=== PATIENT | male | born 1940 | race Caucasian/White ===

== ENCOUNTER 2018-03-28 13:17 | Emergency (ER) | payer MEDICARE | END 2018-03-28 14:03 | disposition home or self-care (01) | LOC: BURERS 13:17 | DX: T46.1X1A Poisoning by calcium-channel blockers, accidental (unintentional), initial encounter (principal); T46.5X1A Poisoning by other antihypertensive drugs, accidental (unintentional), initial encounter; G30.9 Alzheimer's disease, unspecified; F02.80 Dementia in other diseases classified elsewhere, unspecified severity, without behavioral disturbance, psychotic disturbance, mood disturbance, and anxiety; Z86.711 Personal history of pulmonary embolism; I25.2 Old myocardial infarction; E78.5 Hyperlipidemia, unspecified; Z87.891 Personal history of nicotine dependence; Z79.899 Other long term (current) drug therapy | CPT/HCPCS: 99283 ==

== ENCOUNTER 2020-01-20 16:45 | Inpatient (IN) | payer MEDICARE, OTHER ==
[2020-01-20] MEDS ORDERED: Ibuprofen 800 MG TAB ONE ×2 (17:13→17:52)
[2020-01-20] MEDS ORDERED: Cefepime 1 GM VIAL ONE (17:52)
[2020-01-20 17:57] LABS: ALT (SGPT) 14 U/L (8-55); AST (SGOT) 25 U/L (5-34); Albumin 3.8 g/dL (3.4-4.8); Alkaline Phosphatase 49 U/L (40-110); Anion Gap 12 mmol/L (10-20); BUN (Urea Nitrogen) 24 mg/dL (8.4-25.7); Bilirubin, Total 0.5 mg/dL (0.2-1.2); Calc. Creatinine Clearance 0 mL/min (70-130); Carbon Dioxide 25 mmol/L (23-31); Chloride 105 mmol/L (98-107); Estimated GFR-MDRD 41; Globulin 3.2 g/dL (2.4-3.5); Glucose 89 mg/dL (83-110); Potassium 4.1 mmol/L (3.5-5.1); Sodium 138 mmol/L (136-145)
[2020-01-20 18:06] LABS: #Basophils 0.1 thou/uL (0.0-0.2); #Lymphocytes 1.7 thou/uL (1.20-3.40); #Monocytes 0.6 thou/uL (0.11-0.59); #Neutrophils 3.1 thou/uL (1.40-6.50); %Eosinophils 0.8 % (0.0-10.0); %Lymphocytes 30.2 % (21.0-51.0); %Neutrophils 56.9 % (42.0-75.0); Hemoglobin 14.9 g/dL (14.0-18.0); Mean Corpuscular HGB CONC 29.8 g/dL (32.0-36.0); Mean Corpuscular Hemoglobin 29.9 pg (27.0-31.0); Mean Platelet Volume 8.9 fL (7.4-10.4); Platelet Count 142 thou/uL (130-400); RBC Distribution Width 12.9 % (11.5-14.5); Red Blood Cell (RBC) Count 4.97 mill/uL (4.70-6.10); White Blood Cell (WBC) Count 5.5 thou/uL (4.8-10.8)
[2020-01-20 18:07] LABS: MDiff Complete? YES; Macrocytosis SLIGHT = 6-15 cells (100X) (0-5/hpf)
[2020-01-20 18:11] LABS: Bilirubin Negative (Negative); Blood, Urine Moderate (Negative); Clarity Slightly Cloudy (Clear); Glucose, Urine (Dipstick) Negative (Negative); Leukocyte Negative (Negative); Nitrite Negative (Negative); Protein, Urine (Dipstick) Trace mg/dL (Neg-Trace); Urobilinogen 0.2 mg/dL (Less than 2)
[2020-01-20 18:12] LABS: Bacteria/HPF 1+ HPF (None Seen); Mucous/LPF 1+ LPF (<2+); RBC/HPF 21-50 HPF (0-3); Squamous Epithelial 0-3 HPF (0-3); WBC/HPF 0-3 HPF (0-3)
--- NOTE | 2020-01-20 19:54 | RAD ---
PORTABLE CHEST: 01/20/20 An AP portable film at 1803 is compared with a 06/19/08 study. The heart remains normal in size. Ther e is some questionable streaking in the left base adjacent to the heart. I cannot exclude an early in filtrate here, though the findings are marginal. No large effusions are seen. The mediastinum appears normal. IMPRESSION: Equivocal left basilar infiltrate. Code T POS: HOME
[2020-01-20] MEDS ORDERED: Adacel (T-DAP) 0.5 ML SYRINGE ONE (19:55)
[2020-01-20] MEDS ORDERED: cefTRIAXone\\ROCEPHIN 1 GM VIAL ONE (19:55)
[2020-01-20] MEDS ORDERED: Amoxicillin/Potassium Clav 875 MG TAB ONE (19:55)
[2020-01-20] MEDS ORDERED: Lidocaine 1% PF 5 ML VIAL ONE (20:00)
[2020-01-20 20:12] VITALS: BMI 24.2
[2020-01-20] MEDS ORDERED: Acetaminophen 325 MG TAB PO PRN (20:44)
[2020-01-20] MEDS ORDERED: Prevnar 13-Val Conj/PF 0.5 ML SYRINGE IM ONE (21:00)
[2020-01-20] MEDS ORDERED: Cefepime 2 GM in Sodium Chloride 0.9% 100 ML IVPB SCH (21:00)
[2020-01-20] MEDS ORDERED: Azithromycin 500 MG in Sodium Chloride 0.9% 250 ML 250 ML IVPB SCH (21:00)
[2020-01-20] MEDS: Famotidine 20 MG TAB PO SCH (21:52)
[2020-01-20] MEDS: Sodium Chloride 0.9% 1,000 ML IV SCH (22:40)
[2020-01-21] MEDS: Cefepime 2 GM in Sodium Chloride 0.9% 100 ML IVPB SCH (05:51)
[2020-01-21] MEDS: Fludrocortisone Acetate 0.1 MG TAB PO SCH (07:55)
[2020-01-21] MEDS: Finasteride 5 MG TAB PO SCH (07:55)
[2020-01-21] MEDS: predniSONE 20 MG TAB PO SCH (07:55)
[2020-01-21 08:10] LABS: Anion Gap 13 mmol/L (10-20); BUN (Urea Nitrogen) 20 mg/dL (8.4-25.7); Calc. Creatinine Clearance 47 mL/min (70-130); Calcium 7.8 mg/dL (7.8-10.44); Carbon Dioxide 19 mmol/L (23-31); Chloride 112 mmol/L (98-107); Estimated GFR-MDRD 55; Glucose 81 mg/dL (83-110); Potassium 4.2 mmol/L (3.5-5.1); Sodium 140 mmol/L (136-145)
[2020-01-21 08:21] LABS: Band 35 % (5-11); Hemoglobin 13.4 g/dL (14.0-18.0); Large Platelets SLIGHT; Lymphocytes 17 % (21-51); MDiff Complete? YES; Mean Corpuscular HGB CONC 30.5 g/dL (32.0-36.0); Mean Corpuscular Hemoglobin 30.2 pg (27.0-31.0); Mean Corpuscular Volume 98.8 fL (78.0-98.0); Mean Platelet Volume 8.1 fL (7.4-10.4); Monocytes 9 % (0-10); Neutrophil 35 % (42-75); Platelet Count 109 thou/uL (130-400); RBC Distribution Width 12.8 % (11.5-14.5); Reactive Lymphocytes 4 % (0-10); Red Blood Cell (RBC) Count 4.44 mill/uL (4.70-6.10); White Blood Cell (WBC) Count 4.6 thou/uL (4.8-10.8)
[2020-01-21] MEDS ORDERED: Atorvastatin Calcium 10 MG TAB PO SCH (17:00)
[2020-01-21] MEDS: Sodium Chloride 0.9% 1,000 ML IV SCH (19:20)
[2020-01-21] MEDS: Famotidine 20 MG TAB PO SCH (20:13)
[2020-01-21] MEDS ORDERED: Azithromycin 250 MG in Sodium Chloride 0.9% 250 ML 250 ML IVPB SCH (21:00)
[2020-01-21] MEDS ORDERED: hydrOXYzine 25 MG TAB PO PRN (22:08)
[2020-01-22] MEDS: Cefepime 2 GM in Sodium Chloride 0.9% 100 ML IVPB SCH (05:08)
[2020-01-22 05:36] LABS: Hemoglobin 13.4 g/dL (14.0-18.0); Mean Corpuscular HGB CONC 31.2 g/dL (32.0-36.0); Mean Corpuscular Hemoglobin 30.8 pg (27.0-31.0); Mean Corpuscular Volume 98.9 fL (78.0-98.0); Mean Platelet Volume 8.8 fL (7.4-10.4); Platelet Count 124 thou/uL (130-400); RBC Distribution Width 12.9 % (11.5-14.5); Red Blood Cell (RBC) Count 4.35 mill/uL (4.70-6.10)
[2020-01-22 05:39] LABS: Base Excess-Venous -2.5 mmol/L (-2.0 to 3.0); Bicarbonate (HCO3v) 22.2 mmol/L (22.0-28.0); CO2 Tension (PvCO2) 37.2 mmHg (40.0-50.0); Calcium, Ionized 1.08 mmol/L (See Comments:); Chloride 108 mmol/L (98-107); Hemoglobin - Calc 13.9 g/dL (14.0-18.0); Potassium 3.7 mmol/L (3.5-5.1); Sodium 143 mmol/L (138-145); T. Carbon Dioxide 23.3 mmol/L (22.0-28.0); vO2 Saturation-calc 77.1 % (60.0-85.0)
[2020-01-22 05:58] LABS: Band 5 % (5-11); Lymphocytes 14 % (21-51); MDiff Complete? YES; Monocytes 8 % (0-10); Neutrophil 72 % (42-75); Platelet Morphology Comment Appears Decreased; RBC Morphology Normal
[2020-01-22] MEDS: Finasteride 5 MG TAB PO SCH (08:16)
[2020-01-22] MEDS: Fludrocortisone Acetate 0.1 MG TAB PO SCH (08:16)
[2020-01-22] MEDS: predniSONE 20 MG TAB PO SCH (08:16)
[2020-01-22] MEDS ORDERED: risperiDONE 0.5 MG TAB PO SCH (10:00)
[2020-01-22 10:32] LABS: SARS-CoV-2 MS2 Positive; SARS-CoV-2 N Gene Negative; SARS-CoV-2 S Gene Negative; SARS-CoV-2 orf1ab Negative
--- NOTE | 2020-01-22 11:26 | RAD ---
PORTABLE CHEST: DATE: 01/22/2020. FINDINGS: An AP portable film at 0850 is compared with a 01/19 study. The heart is normal in size. The haziness seen previously adjacent to the left heart border is less evident today. No definite consolidation was seen on today's images. No effusions are present. The hiatal hernia is noted behind the heart. IMPRESSION: No definite infiltrate appreciated today. POS: HOME
[2020-01-22] MEDS ORDERED: ALPRAZolam 0.5 MG TAB PO PRN (14:29)
[2020-01-22] MEDS ORDERED: Azithromycin 500 MG in Sodium Chloride 0.9% 250 ML 250 ML IVPB SCH (20:15)
[2020-01-22] MEDS: Famotidine 20 MG TAB PO SCH (20:25)
[2020-01-22] MEDS ORDERED: Atorvastatin Calcium 10 MG TAB PO SCH (21:00)
[2020-01-22] MEDS: risperiDONE 0.5 MG TAB PO SCH (21:36)
[2020-01-23] MEDS: Cefepime 2 GM in Sodium Chloride 0.9% 100 ML IVPB SCH (07:13)
[2020-01-23] MEDS: Fludrocortisone Acetate 0.1 MG TAB PO SCH (08:24)
[2020-01-23] MEDS: risperiDONE 0.5 MG TAB PO SCH (08:24)
[2020-01-23] MEDS: Finasteride 5 MG TAB PO SCH (08:24)
[2020-01-23] MEDS: predniSONE 20 MG TAB PO SCH (08:24)
[2020-01-23 08:46] LABS: #Eosinphils 0.1 thou/uL (0.0-0.7); #Lymphocytes 1.6 thou/uL (1.20-3.40); #Monocytes 0.4 thou/uL (0.11-0.59); #Neutrophils 4.1 thou/uL (1.40-6.50); %Basophils 0.5 % (0.0-1.0); %Eosinophils 1.5 % (0.0-10.0); %Lymphocytes 25.8 % (21.0-51.0); %Monocytes 6.2 % (0.0-10.0); %Neutrophils 65.9 % (42.0-75.0); Mean Corpuscular HGB CONC 31.7 g/dL (32.0-36.0); Mean Corpuscular Hemoglobin 30.7 pg (27.0-31.0); Mean Corpuscular Volume 96.9 fL (78.0-98.0); Mean Platelet Volume 8.2 fL (7.4-10.4); Platelet Count 135 thou/uL (130-400); RBC Distribution Width 12.5 % (11.5-14.5); Red Blood Cell (RBC) Count 3.92 mill/uL (4.70-6.10); White Blood Cell (WBC) Count 6.3 thou/uL (4.8-10.8)
[2020-01-23 08:49] LABS: Anion Gap 10 mmol/L (10-20); BUN (Urea Nitrogen) 25 mg/dL (8.4-25.7); Calc. Creatinine Clearance 43 mL/min (70-130); Calcium 7.9 mg/dL (7.8-10.44); Carbon Dioxide 22 mmol/L (23-31); Chloride 115 mmol/L (98-107); Estimated GFR-MDRD 50; Glucose 74 mg/dL (83-110); Potassium 3.5 mmol/L (3.5-5.1); Sodium 143 mmol/L (136-145)
[2020-01-23 15:15] VITALS: BP 146/70; TEMP 97.6
== END 2020-01-23 15:10 | disposition home or self-care (01) | DRG 194 ==
LOC: BURERS 16:45 → BURMED 18:50
PROVIDERS: ADMIT Family Medicine; ATTEND Family Medicine
DX: J18.9 Pneumonia, unspecified organism (principal); E27.40 Unspecified adrenocortical insufficiency; E78.5 Hyperlipidemia, unspecified; Z96.651 Presence of right artificial knee joint; F17.210 Nicotine dependence, cigarettes, uncomplicated; E86.0 Dehydration; G30.9 Alzheimer's disease, unspecified; F02.80 Dementia in other diseases classified elsewhere, unspecified severity, without behavioral disturbance, psychotic disturbance, mood disturbance, and anxiety; Z79.01 Long term (current) use of anticoagulants; I25.2 Old myocardial infarction; Z86.711 Personal history of pulmonary embolism; Z98.42 Cataract extraction status, left eye; Z98.41 Cataract extraction status, right eye
CPT/HCPCS: 36415; 71045; 80048; 80053; 81003; 81015; 82330; 82803; 83605; 84484; 85025; 87040; 87086; 87635; 90715; J0456; J0692; J0696; J2001; J3490; J7050; J7512; U0003

== ENCOUNTER 2020-06-24 14:10 | Emergency (ER) | payer MEDICARE, OTHER ==
[2020-06-24 15:30] LABS: #Eosinphils 0.1 thou/uL (0.0-0.7); #Lymphocytes 1.4 thou/uL (1.20-3.40); #Monocytes 0.7 thou/uL (0.11-0.59); %Basophils 0.5 % (0.0-1.0); %Eosinophils 1.7 % (0.0-10.0); %Lymphocytes 19.2 % (21.0-51.0); %Monocytes 9.5 % (0.0-10.0); %Neutrophils 69.1 % (42.0-75.0); Hemoglobin 13.9 g/dL (14.0-18.0); Mean Corpuscular HGB CONC 31.5 g/dL (32.0-36.0); Mean Corpuscular Hemoglobin 30.7 pg (27.0-31.0); Mean Corpuscular Volume 97.7 fL (78.0-98.0); Platelet Count 172 thou/uL (130-400); RBC Distribution Width 13.3 % (11.5-14.5); Red Blood Cell (RBC) Count 4.53 mill/uL (4.70-6.10); White Blood Cell (WBC) Count 7.2 thou/uL (4.8-10.8)
[2020-06-24 15:42] LABS: ALT (SGPT) 19 U/L (8-55); AST (SGOT) 22 U/L (5-34); Albumin 3.6 g/dL (3.4-4.8); Alkaline Phosphatase 49 U/L (40-110); Anion Gap 12 mmol/L (10-20); BUN (Urea Nitrogen) 22 mg/dL (8.4-25.7); Bilirubin, Total 0.7 mg/dL (0.2-1.2); Calc. Creatinine Clearance 0 mL/min (70-130); Calcium 8.8 mg/dL (7.8-10.44); Carbon Dioxide 29 mmol/L (23-31); Chloride 106 mmol/L (98-107); Estimated GFR-MDRD 54; Glucose 73 mg/dL (83-110); Potassium 3.8 mmol/L (3.5-5.1); Protein, Total 6.6 g/dL (5.8-8.1); Sodium 143 mmol/L (136-145)
[2020-06-24] MEDS ORDERED: Aspirin Chewable 81 MG TAB ONE (16:31)
--- NOTE | 2020-06-24 17:33 | CT ---
CT BRAIN WITHOUT CONTRAST: Date: 06-24-2020 FINDINGS: A noncontrast CT shows normal sized ventricles given the atrophy and age of the patient. No intracran ial bleeding, mass, or sign of acute stroke was found. The visible paranasal sinuses are clear. IMPRESSION: Generalized atrophy but no acute intracranial findings. Preliminary report called to Dr. Sherwood at 1527 on 06-24-2020. POS: HOME
--- NOTE | 2020-06-24 17:35 | RAD ---
PORTABLE CHEST: DATE: 06-24-2020 An AP portable film at 1534 is compared with a 01-22-2020 study. FINDINGS: The heart is unchanged in size. There is no vascular congestion, edema, or pleural effusion. Some min imal scarring or atelectasis is seen near the costophrenic angles. IMPRESSION: No acute thoracic finding. POS: HOME
== END 2020-06-24 17:05 | disposition home or self-care (01) ==
LOC: BURERS 14:10
DX: L03.116 Cellulitis of left lower limb (principal); L03.115 Cellulitis of right lower limb; I25.2 Old myocardial infarction; E78.5 Hyperlipidemia, unspecified; Z87.891 Personal history of nicotine dependence
CPT/HCPCS: 36415; 70450; 71045; 80053; 83880; 84484; 85025; 93005

== ENCOUNTER 2020-08-21 19:22 | Emergency (ER) | payer MEDICARE | END 2020-08-21 19:47 | disposition home or self-care (01) | LOC: BURERS 19:22 | DX: T69.022A Immersion foot, left foot, initial encounter (principal); T69.021A Immersion foot, right foot, initial encounter; L03.116 Cellulitis of left lower limb; Z79.899 Other long term (current) drug therapy; Z79.52 Long term (current) use of systemic steroids; Z79.82 Long term (current) use of aspirin | CPT/HCPCS: 99283 ==

== ENCOUNTER 2021-03-26 10:25 | Emergency (ER) | payer MEDICARE ==
[2021-03-26] MEDS ORDERED: cefTRIAXone\\ROCEPHIN 2 GM VIAL ONE (11:06)
[2021-03-26] MEDS ORDERED: Sodium Chloride 0.9% 100 ML ONE (11:06)
[2021-03-26 11:10] LABS: #Basophils 0.1 thou/uL (0.0-0.2); #Eosinphils 0.1 thou/uL (0.0-0.7); #Lymphocytes 1.7 thou/uL (1.20-3.40); #Monocytes 1.4 thou/uL (0.11-0.59); #Neutrophils 8.1 thou/uL (1.40-6.50); %Basophils 0.5 % (0.0-1.0); %Eosinophils 0.5 % (0.0-10.0); %Monocytes 12.5 % (0.0-10.0); %Neutrophils 71.6 % (42.0-75.0); Hemoglobin 14.8 g/dL (14.0-18.0); Mean Corpuscular HGB CONC 31.9 g/dL (32.0-36.0); Mean Corpuscular Hemoglobin 30.8 pg (27.0-31.0); Mean Corpuscular Volume 96.6 fL (78.0-98.0); Mean Platelet Volume 8.3 fL (7.4-10.4); Platelet Count 162 thou/uL (130-400); RBC Distribution Width 13.8 % (11.5-14.5); White Blood Cell (WBC) Count 11.3 thou/uL (4.8-10.8)
[2021-03-26 11:13] LABS: Bilirubin Small (Negative); Blood, Urine Moderate (Negative); Clarity Clear (Clear); Glucose, Urine (Dipstick) Negative (Negative); Ketone, Urine Trace mg/dL (Negative); Leukocyte Negative (Negative); Nitrite Negative (Negative); Protein, Urine (Dipstick) Negative (Neg-Trace)
[2021-03-26 11:19] LABS: Bacteria/HPF None Seen HPF (None Seen); Other Microscopic Description C&S SET UP; Squamous Epithelial 0-3 HPF (0-3); WBC/HPF 0-3 HPF (0-3)
[2021-03-26 11:20] LABS: Lactic Acid 2.9 mmol/L (0.5-2.2)
[2021-03-26 11:24] LABS: ALT (SGPT) 15 U/L (8-55); AST (SGOT) 23 U/L (5-34); Albumin 3.5 g/dL (3.4-4.8); Alkaline Phosphatase 52 U/L (40-110); Anion Gap 17 mmol/L (10-20); BUN (Urea Nitrogen) 36 mg/dL (8.4-25.7); Bilirubin, Total 1.6 mg/dL (0.2-1.2); Calc. Creatinine Clearance 0 mL/min (70-130); Calcium 9.4 mg/dL (7.8-10.44); Carbon Dioxide 30 mmol/L (23-31); Chloride 103 mmol/L (98-107); Globulin 3.5 g/dL (2.4-3.5); Glucose 97 mg/dL (83-110); Potassium 4.5 mmol/L (3.5-5.1); Sodium 145 mmol/L (136-145)
[2021-03-26] MEDS ORDERED: Acetaminophen 500 MG TAB ONE (11:38)
[2021-03-26] MEDS ORDERED: Azithromycin 250 MG TAB ONE (12:39)
[2021-03-26] MEDS ORDERED: Lorazepam 2 MG/ML VIAL ONE (14:04)
== END 2021-03-26 15:39 | disposition short-term general hospital (02) ==
LOC: BURERS 10:25 → UNDODISIN 12:15 → UNDOADMIN 12:15 → BURMED 12:15 → BURERS 15:39
DX: A41.9 Sepsis, unspecified organism (principal); E86.0 Dehydration; Z79.899 Other long term (current) drug therapy; Z79.52 Long term (current) use of systemic steroids; Z79.82 Long term (current) use of aspirin; E78.00 Pure hypercholesterolemia, unspecified
CPT/HCPCS: 36415; 71045; 80053; 81001; 82550; 83605; 84484; 85025; 87040; 87086; 96374; 96375; J0696; J2060; J3490